=== PATIENT | male | born 1995 | race Two or more races ===

== ENCOUNTER 2025-04-23 13:59 | Emergency (ER) | payer SELFPAY ==
[2025-04-23 14:09] VITALS: BP 158/97; PULSE 96; RESP 16; TEMP 37; O2SAT 100
[2025-04-23 14:41] LABS: EDUAAPPEAR Cloudy; EDUABILI Negative (Negative); EDUABLOOD Trace (Negative); EDUACOLOR1 Dark; EDUAGLUCOSE Negative (Negative); EDUAKETONE Negative (Negative); EDUALEUKO 2+ (Negative); EDUANITRATE Negative (Negative); EDUAPH 7.0; EDUAPROTEIN 1+ (Negative); EDUASPGRAVITY 1.020; EDUAUROBILI 0.2
--- NOTE | 2025-04-23 14:42 | ED.MALEGU ---
HPI - Male Genitourinary General Chief complaint: Urogenital-Male Stated complaint: UTI SYMPTOMS Time Seen by Provider: 04/23/25 14:43 Source: patient, RN notes reviewed and old records reviewed Mode of arrival: ambulatory Limitations: no limitations History of Present Illness HPI Narrative: 29-year-old male presents to the [facility] with burning with urination that started 3 days ago. Reports he did have penile discharge. Has had no nausea. Reports left lower back pain that is not reproducible. Denies fevers, nausea. Denies any rashes. Denies testicular pain. Related Data Sexually active: Yes Allergies Allergy/AdvReac Type Severity Reaction Status Date / Time aluminum Allergy Intermediate Rash Verified 04/23/25 14:32 titanium Allergy Intermediate Rash Verified 04/23/25 14:32 Review of Systems Review of Systems: All systems reviewed & are unremarkable except as noted in HPI and below Constitutional: Constitutional: Reports no additional constitutional complaints Respiratory: Respiratory: Reports no additional respiratory complaints, Denies chest congestion, Denies cough and Denies dyspnea Musculoskeletal: Musculoskeletal: Reports no additional musculoskeletal complaints Integumentary/Breasts: Skin/Breast: Reports system reviewed and no additional complaints, except as docu PMFSH Past Medical History Medical History Knee pain Rotator cuff disorder Personality change Family History Family History Other Diabetes mellitus Hypertension Social History Social History Smoking status: Smoker, status unknown Alcohol intake: current Comments At the time of my signature, I reviewed and agree with the nursing past medical, surgical, social, and family history. There is no relevant family history pertinent to the patient complaint. Exam Const: General: cooperative, healthy appearing, comfortable, no acute distress, well developed, alert and well nourished Nutritional Appearance: well nourished Orientation/consciousness: patient oriented x3 Limitations: no limitations HENMT: Head: normal to inspection Eyes: General: appearance normal, both eyes and all related structures Alignment and Position: alignment normal Neck: Neck: normal visual inspection, full ROM, no lymphadenopathy and no meningeal signs Chest: Chest palpation & inspection: normal inspection of the chest Resp: Effort & Inspection: normal respiratory effort and able to speak in complete sentences Cardio: Rate: regular rate GI: GI Palp: No abdominal tenderness : General: Yes no CVA tenderness Skin: General skin exam: normal color and no rashes or lesions noted Neuro: General: patient oriented x3, gait normal, moves all extremities and no meningeal signs Cognition (Neuro): normal cognition Speech: normal speech Gait exam (Neuro): Normal gait present Extrem: General: normal to inspection, full ROM, capillary refill normal and normal gait Psych: Appearance: grossly normal and well kempt Mental Status: mental status grossly normal Speech and movement: Normal speech and movement present and Clear speech present Affect: normal affect Attitude: cooperative Course Course Level of Care: Express Care Visit Vital Signs Vital signs: Vital Signs Temperature 98.6 F 04/23/25 14:09 Pulse Rate 96 04/23/25 14:09 Respiratory Rate 16 04/23/25 14:09 Blood Pressure 158/97 H 04/23/25 14:09 Pulse Oximetry 100 04/23/25 14:09 Temperature 98.6 F 04/23/25 14:09 Pulse Rate 96 04/23/25 14:09 Respiratory Rate 16 04/23/25 14:09 Blood Pressure 158/97 H 04/23/25 14:09 Pulse Oximetry 100 04/23/25 14:09 Reviewed MDM - Male Genitourinary MDM Narrative Medical decision making narrative: Patient sitting in exam. Patient is nontoxic presents 3 day history burning with urination. Leukocyte and blood noted in urine Patient wanting to be tested for STIs, no known positive exposure Patient has had sex unprotected Patient appropriate for outpatient treatment with close follow-up Discharge instructions reviewed with patient, as well as provided in writing per nursing staff. The instructions also include specific and strict return/GO TO THE ER as well as f/u information. All questions have been answered, and the patient deny any further questions with discharge and discharge plan. Some parts of this dictation were generated by voice recognition software and may contain typographical and/or grammatical inaccuracies. Differential Diagnosis Differential diagnosis: Likely urinary tract infection, urethritis, epididymitis, genital herpes simplex, prostatitis, acute retention of urine and inguinal hernia Lab Data Labs: Lab Results 04/23/25 04/23/25 Range/Units 14:38 15:00 POC Urine Color Dark POC Urine Clarity Cloudy POC Urine pH 7.0 POC Ur Specif [place] 1.020 POC Urine Protein 1+ (Negative) POC Ur Glucose (UA) Negative (Negative) POC Urine Ketones Negative (Negative) POC Urine Blood Trace (Negative) POC Urine Nitrite Negative (Negative) POC Urine Bilirubin Negative (Negative) POC Urine Urobilinogen 0.2 POC U Leukocyte Esteras 2+ (Negative) C. trachomatis (PCR) Not detected (NOT DETECTE) N. gonorrhoeae (PCR) Detected A (NOT DETECTE) T. vaginalis (PCR) Not detected (NOT DETECTE) Critical Care Time Critical Care Time Critical Care Time: No Discharge Plan Discharge Clinical Impression: Dysuria Patient Disposition: Home Condition: Stable Instructions: Urinary Tract Infection in Men (ED) Additional Instructions: Increased water intake Take Tylenol as needed for pain Take antibiotic as prescribed Today your urine dip showed a probability of a UTI. You have been prescribed an antibiotic. Your urine will be sent to our lab for a culture. If at that time a bacteria grows that is not covered by the antibiotic prescribed you will be notified.. Testing was sent for chlamydia, gonorrhea and Trichomonas. If they are positive you will be notified and appropriate antibiotics will be called in or we will instruct to to return to clinic. Follow-up with primary care For new or worsening symptoms go directly to the emergency room Patient Language: Bol[place]ian Prescriptions: New amoxicillin-pot clavulanate 875-125 mg tablet 1 tablet PO Q12H Qty: 10 0RF No Action naproxen 500 mg tablet 500 mg PO BID Qty: 60 0RF Follow-up/Referrals: Jason Levin MD [Primary Care Provider[facility] pressure check 158/97[facility] Time of Disposition: 15:03
--- NOTE | 2025-04-23 15:01 | PC.NURSE ---
in br to obtain additional urine for std testing.
[2025-04-23 18:00] LABS: Trichomonas Vag PCR NOT DETECTED (NOT DETECTE)
== END 2025-04-23 15:08 | disposition home or self-care (01) ==
PROVIDERS: Emergency Provider Nurse Practitioner; PCP Family Medicine
DX: R30.0 Dysuria (principal)
CPT/HCPCS: 81003; 87086; 87491; 87591; 87661; 99213; G0463

== ENCOUNTER 2025-04-24 08:58 | Emergency (ER) | payer SELFPAY ==
[2025-04-24 09:04] VITALS: BP 155/103; PULSE 68; RESP 16; TEMP 36.2; O2SAT 100
[2025-04-24] MEDS: cefTRIAXone 500 MG, LIDOCAINE 1% LOCAL INJ 1 ML IM (09:19)
--- NOTE | 2025-04-24 09:22 | ED_ITS ---
HPI - Male Genitourinary General Chief complaint: Urogenital-Male Stated complaint: STD Time Seen by Provider: 04/24/25 09:17 Source: patient and RN notes reviewed Mode of arrival: ambulatory Limitations: no limitations History of Present Illness HPI Narrative: Patient presents today to receive an injection of Rocephin for positive gonorrhea test. He came to [facility] yesterday complaining of penile discharge and was tested for gonorrhea, chlamydia, and Trichomonas and his gonorrhea test was positive. He did not receive prophylactic antibiotics yesterday for STI and was notified this morning of the positive results. He had some leukocyte esterase, blood, and protein in his urinalysis and was started on Augmentin for his dysuria. Related Data Allergies Allergy/AdvReac Type Severity Reaction Status Date / Time aluminum Allergy Intermediate Rash Verified 04/24/25 09:25 titanium Allergy Intermediate Rash Verified 04/24/25 09:25 [facility] Past Medical History Medical History Knee pain Rotator cuff disorder Personality change Family History Family History Other Diabetes mellitus Hypertension Social History Social History Smoking status: Smoker, status unknown Alcohol intake: current Comments At time of signature, I have reviewed and agree with nursing past medical, surgical, social and family history unless otherwise noted. Please see nursing chart for further information. There is no relevant family history pertinent to the presenting complaint Exam Narrative: GENERAL: Well-appearing, well-nourished, and in no acute distress. HEAD: Normocephalic, atraumatic. EYES: EOMI. No redness or drainage. Conjunctivae normal. ENT: Mucous membranes pink and moist. NECK: Normal AROM. CHEST: No respiratory distress. EXTREMITIES: Normal range of motion. No edema. SKIN: Warm, dry, no rash. Capillary refill normal. Normal skin turgor. NEURO: No focal deficits. Alert and oriented x3. Gait steady. PSYCH: Normal affect. No signs of depression or anxiety. Course Course Level of Care: Express Care Visit Vital Signs Vital signs: Vital Signs Temperature 97.2 F L 04/24/25 09:04 Pulse Rate 68 04/24/25 09:04 Respiratory Rate 16 04/24/25 09:04 Blood Pressure 155/103 H 04/24/25 09:04 Pulse Oximetry 100 04/24/25 09:04 Temperature 97.2 F L 04/24/25 09:04 Pulse Rate 68 04/24/25 09:04 Respiratory Rate 16 04/24/25 09:04 Blood Pressure 155/103 H 04/24/25 09:04 Pulse Oximetry 100 04/24/25 09:04 Reviewed MDM - Male Genitourinary MDM Narrative Medical decision making narrative: 29-year-old male patient presents today after a positive gonorrhea test, for his Rocephin injection. Patient has been notified that he can stop his Augmentin prescription as it is likely not treating anything. Discussed abstinence for the next 10 days and notify any sexual partners. Patient has quite elevated blood pressure, notified that he needs to get this evaluated. Remainder of vital signs stable. Differential Diagnosis Differential diagnosis: Likely other (Gonorrhea) Critical Care Time Critical Care Time Critical Care Time: No Discharge Plan Discharge Clinical Impression: Gonorrhea Patient Disposition: Home Condition: Stable Instructions: Gonorrhea (ED) Additional Instructions: You have tested positive for gonorrhea, and negative for chlamydia and Trichomonas. You have received a 1 time dose of Rocephin, which will clear the gonorrhea. Please abstain from any sexual contact for the next 10 days. Notify all sexual partners of this positive test so they can be tested and treated. You can stop the Augmentin they were prescribed yesterday. Follow-up with your PCP with any additional concerns, and for a re-evaluation of your blood pressure. Patient Language: [place]at[place] Prescriptions: No Action amoxicillin-pot clavulanate 875-125 mg tablet 1 tablet PO Q12H Qty: 10 0RF naproxen 500 mg tablet 500 mg PO BID Qty: 60 0RF Follow-up/Referrals: Jason Levin MD [Primary Care Provider] - Time of Disposition: :
== END 2025-04-24 09:37 | disposition home or self-care (01) ==
PROVIDERS: Emergency Provider Nurse Practitioner; PCP Family Medicine
DX: A54.9 Gonococcal infection, unspecified (principal)
CPT/HCPCS: 96372; 99213; G0463; J0696; J2003